=== PATIENT | female | born 1965 | race Caucasian/White ===

== ENCOUNTER 2016-10-01 22:08 | Emergency (ER) | payer BC ==
[2016-10-01 22:23] VITALS: BP 144/93; PULSE 87; RESP 18; TEMP 98.8; O2SAT 95
[2016-10-01] MEDS ORDERED: DEXAMETHASONE 4 MG TAB PO ONE (22:26)
[2016-10-01] MEDS ORDERED: AZITHROMYCIN 250 MG TAB PO ONE (22:26)
--- NOTE | 2016-10-01 22:29 | EDPHY ---
H & P Stated Complaint: sore throat since Friday with dry cough, scratchy voice, nausea. Time Seen by Provider: 10/01/16 22:21 HPI/ROS: CHIEF COMPLAINT: Sore throat HISTORY OF PRESENT ILLNESS: The patient is a 42-year-old female who comes to the emergency department complaining of a sore throat. She states that it feels like she is swallowing glass. Her symptoms began 4 days ago while she was on a trip in [place]. She has not had fevers or chills. No nausea vomiting. She has had a mild dry cough. No sinus congestion or tenderness. No headache. REVIEW OF SYSTEMS: Constitutional: denies: chills, fever, recent illness, recent injury EENTM: See HPI denies: blurred vision, double vision, nose congestion Respiratory: denies: cough, shortness of breath Cardiac: denies: chest pain, irregular heart rate, lightheadedness, palpitations Gastrointestinal/Abdominal: denies: abdominal pain, diarrhea, nausea, vomiting, blood streaked stools Genitourinary: denies: dysuria, frequency, hematuria, pain Musculoskeletal: denies: joint pain, muscle pain Skin: denies: lesions, rash, jaundice, bruising Neurological: denies: headache, numbness, paresthesia, tingling, dizziness, weakness Hematologic/Lymphatic: denies: blood clots, easy bleeding, easy bruising Immunologic/allergic: denies: HIV/AIDS, transplant EXAM: GENERAL: Well-appearing, well-nourished and in no acute distress. HEAD: Atraumatic, normocephalic. EYES: Pupils equal round and reactive to light, extraocular movements intact, sclera anicteric, conjunctiva are normal. ENT: TMs normal, nares patent, oropharynx erythematous without exudates. Moist mucous membranes. NECK: Normal range of motion, supple without lymphadenopathy or JVD. LUNGS: Breath sounds clear to auscultation bilaterally and equal. No wheezes rales or rhonchi. HEART: Regular rate and rhythm without murmurs, rubs or gallops. ABDOMEN: Soft, nontender, normoactive bowel sounds. No guarding, no rebound. No masses appreciated. BACK: No CVA tenderness, no spinal tenderness, step-offs or deformities EXTREMITIES: Normal range of motion, no pitting or edema. No clubbing or cyanosis. NEUROLOGICAL: Cranial nerves II through XII grossly intact. Normal speech, normal gait. 5/5 strength, normal movement in all extremities, normal sensation PSYCH: Normal mood, normal affect. SKIN: Warm, dry, normal turgor, no visible rashes or lesions. Source: Patient Exam Limitations: No limitations - Personal History Current Tetanus Diphtheria and Acellular Pertussis (TDAP): Yes - Medical/Surgical History Hx Asthma: No Hx Chronic Respiratory Disease: No Hx Diabetes: No Hx Cardiac Disease: No Hx Renal Disease: No Hx Cirrhosis: No Hx Alcoholism: No Hx HIV/AIDS: No Hx Splenectomy or Spleen Trauma: No Other PMH: none - Family History Significant Family History: No pertinent family hx - Social History Smoking Status: Never smoked Alcohol Use: Sober Drug Use: None Constitutional: Initial Vital Signs Temperature (C) 37.1 C 10/01/16 22:10 Heart Rate 87 10/01/16 22:10 Respiratory Rate 18 10/01/16 22:10 Blood Pressure 144/93 H 10/01/16 22:10 O2 Sat (%) 95 10/01/16 22:10 O2 Delivery Mode Room Air Allergies/Adverse Reactions: No Known Allergies Allergy (Unverified 10/01/16 22:23) Home Medications: Medication Instructions Recorded AZITHROMYCIN [Z-PACK] 250 mg PO DAILY #4 tab 10/01/16 Medical Decision Making ED Course/Re-evaluation: Patient has symptoms consistent with strep throat. I will send a swab and start her on azithromycin. She will discontinue them if her PCR comes back negative tomorrow. Also discussed Decadron and antipyretics for pain control. Differential Diagnosis: Partial list of the Differential diagnosis considered include but were not limited to; strep throat, pharyngitis, sinusitis, otitis media and although unlikely based on the history and physical exam, I also considered meningitis, lymphoma, abscess. I discussed these differential diagnoses and the plan with the patient as well as the usual and expected course. The patient understands that the diagnosis is provisional and that in medicine we are not always correct and that further workup is often warranted. Usual and customary warnings were given. All of the patient's questions were answered. The patient was instructed to return to the emergency department should the symptoms at all worsen or return, otherwise to followup with the physician as we discussed. - Data Points Medications Given: Discontinued Medications Acetaminophen/Codeine Phosphate (Tylenol #3) 2 tab PO Q6HRS PRN PRN Reason: Pain, Moderate Able to Take PO Stop: 10/11/16 22:42 Last Admin: 10/01/16 22:45 Dose: 2 tab Azithromycin (Zithromax) 500 mg PO EDNOW ONE PRN Reason: Protocol Stop: 10/01/16 22:27 Last Admin: 10/01/16 22:32 Dose: 500 mg Dexamethasone (Decadron) 10 mg PO EDNOW ONE Stop: 10/01/16 22:27 Last Admin: 10/01/16 22:32 Dose: 10 mg Departure - Departure Disposition: Home, Routine, Self-Care Clinical Impression: Acute pharyngitis Qualifiers: Pharyngitis/tonsillitis etiology: unspecified etiology Qualified Code(s): J02.9 - Acute pharyngitis, unspecified Condition: Fair Instructions: Pharyngitis (ED) Referrals: Sylwia Peacock DO [Doctor of Osteopathy] - As per Instructions Prescriptions: AZITHROMYCIN [Z-PACK] 250 mg PO DAILY #4 tab
[2016-10-01] MEDS ORDERED: ACETAMINOPHEN/CODEINE 300/30MG TAB ONE ×2 (22:40→22:41)
[2016-10-01] MEDS ORDERED: ACETAMINOPHEN/CODEINE 300/30MG TAB PO PRN (22:43)
== END 2016-10-01 22:45 | disposition home or self-care (01) ==
LOC: CED 22:08
DX: J02.9 Acute pharyngitis, unspecified (principal)
CPT/HCPCS: 87880-PO

== ENCOUNTER → 2016-10-16 | Outpatient (CLI) | payer BC | LOC: CIMAGING 14:01 | DX: Z12.31 Encounter for screening mammogram for malignant neoplasm of breast (principal) | CPT/HCPCS: G0202 ==

== ENCOUNTER 2018-04-27 20:49 | Emergency (ER) | payer BC ==
--- NOTE | 2018-04-27 21:13 | EDPHY ---
H & P Time Seen by Provider: 04/27/18 21:05 HPI/ROS: CHIEF COMPLAINT: Chills, cough, shortness of breath HISTORY OF PRESENT ILLNESS: Patient is a 52-year-old female who presents emergency department after beginning to feel ill at approximately 1:00 p.m. Today. The patient states that her has been sick since Friday. He has had a significant cough. He saw his primary care physician today and was diagnosed with bronchitis and sinusitis. He was started on Augmentin. Patient states her symptoms started at 1:00 p.m.. She began to developed chills and felt"freezing."She developed a slight nonproductive cough. She feels as though she is mildly short of breath. No chest pain at rest. She has had a mild headache. No photophobia or neck stiffness. No nausea vomiting. No abdominal pain. REVIEW OF SYSTEMS: 10 systems were reveiwed and are negative with the exception of the elements mentioned in the history of present illness. Past Medical/Surgical History: Negative Smoking Status: Never smoked Physical Exam: Vitals noted GENERAL: No acute distress, alert. HEENT: Eyes normal to inspection, normal pharynx, no signs of dehydration. NECK: Normal, supple. RESPIRATORY: Clear to auscultation bilaterally, no rales, rhonchi or wheezing. CVS: Regular rate and rhythm, no rubs, murmurs, or gallops. ABDOMEN: Soft, nontender, nondistended, no organomegaly. BACK: Normal to inspection, no CVA tenderness. SKIN: Normal color, no rash, warm, dry. No pallor. EXTREMITIES: No pedal edema, no calf tenderness, no Homans sign or cords, no joint swelling. NEURO/PSYCH: Alert and oriented, normal mood and affect, normal motor sensory exam. No obvious cranial nerve deficit. Constitutional: Initial Vital Signs Temperature (C) 37.7 C 04/27/18 20:54 Heart Rate 103 H 04/27/18 20:54 Respiratory Rate 20 04/27/18 20:54 Blood Pressure 164/88 H 04/27/18 20:54 O2 Sat (%) 94 04/27/18 20:54 O2 Delivery Mode Room Air Allergies/Adverse Reactions: No Known Allergies Allergy (Unverified 10/01/16 22:23) Home Medications: Medication Instructions Recorded NK [No Known Home Meds] 04/27/18 Medical Decision Making - Diagnostics Imaging Results: Imaging Impressions Chest X-Ray 04/27/18 21:10 Impression: Airways disease. No pneumonia. ED Course/Re-evaluation: In the emergency department I discussed possible etiologies with the patient. Answered all her questions. A flu swab and chest x-ray were ordered. I do not feel this is cardiac in nature. I do not feel the patient needs laboratory studies. Influenza PCR negative Chest x-ray: Please refer the dictated report. No pneumonia 21 50: I rechecked the patient. She was doing well. She is smiling and interactive. She had no signs respiratory distress. She is given warnings prior to leaving. She will return with worsening symptoms. Differential Diagnosis: My differential includes but is not limited to viral illness, bronchitis, pneumonia, influenza, bacteremia, sepsis, meningitis ACS, acute CO, PE - Data Points Point of Care Test Results: Influenza PCR Flu Nasal Swab Collection Date 04/27/18 Flu Nasal Swab Collection Time 21:15 Influenza A Result Not Detected Influenza B Result Not Detected Departure - Departure Disposition: Home, Routine, Self-Care Clinical Impression: Viral illness Fever Qualifiers: Fever type: unspecified Qualified Code(s): R50.9 - Fever, unspecified Condition: Good Instructions: Fever in Adults (ED), Viral Syndrome (ED) Additional Instructions: Your influenza screen was negative. Your chest x-ray did not show a pneumonia. Return with increasing shortness of breath, chest pain, persistent fever or any other concerns. Take acetaminophen and ibuprofen for your fever. Referrals: Selma Gao [Primary Care Provider] - 2-3 days without fail
[2018-04-27 22:01] VITALS: BP 134/88
== END 2018-04-27 22:00 | disposition home or self-care (01) ==
LOC: CED 20:49
DX: B34.9 Viral infection, unspecified (principal)
CPT/HCPCS: 71046-PO

== ENCOUNTER → 2018-07-14 | Outpatient (CLI) | payer BC | LOC: FIMAGING 12:05 | PROVIDERS: ATTEND Family Medicine | DX: Z12.31 Encounter for screening mammogram for malignant neoplasm of breast (principal) ==